=== PATIENT | female | born 1960 | race Caucasian/White ===

== ENCOUNTER → 2018-03-14 | Outpatient (CLI) | payer SELFPAY ==
--- NOTE | 2018-03-14 10:27 | RADIOLOGY IMAGING REPORT ---
FACILITY: [facility] [place] PATIENT NAME: Radha Coto : 1960 MR: [id number] V: [id number] EXAM DATE: ORDERING PHYSICIAN: LEXI GOOD TECHNOLOGIST: Location: [facility] Patient: Radha Coto : 1960 Visit/Account:[id number] Date of Sevice: 03/14/2018 L SPINE W/O CONTRAST EXAMINATION: Lumbar spine MRI without IV contrast HISTORY: Low back pain. COMPARISON: None. TECHNIQUE: Multi-planar, multi-sequence lumbar spine MRI was performed without intravenous contrast administration. FINDINGS: Alignment: Distortion of the normal lordotic curvature of the lumbar spine is related to a 9 mm anter ior spondylolisthesis at L5-S1 related to bilateral spondylolysis defects involving the pars interart icularis of L5. Vertebral marrow signal: There are Modic type endplate changes due to discogenic degenerative disease at L5-S1. Distal thoracic cord: Negative. Conus: negative, terminates at L1. Cauda equina: Negative. Paravertebral soft tissues: Negative. Visualized abdominal and pelvic structures: There is no retroperitoneal or pelvic lymphadenopathy. Lower thoracic spine: Normal. Sacrum: No abnormality noted. L1-2: Normal. L2-3: Minimal discogenic degenerative changes without central or foraminal stenosis. L3-4: Minimal discogenic degenerative changes without central or foraminal stenosis. L4-5: Discogenic degenerative changes manifest as loss of disc space height with desiccation of the i ntervertebral disc. Superimposed upon a very shallow annular disc bulge is a central disc protrusion that abuts the thecal sac but does not produce significant central stenosis. L5-S1: There is a 9 mm anterior spondylolisthesis related to bilateral spondylolysis defects involvin g the pars interarticularis of L5. There are resultant severe discogenic degenerative changes with a prominent annular disc bulge. There is no central stenosis, but there is very prominent foraminal s tenosis bilaterally due to the anterior spondylolisthesis and the annular disc bulge. There is likel y to be effective both the right and left exiting L5 nerve roots. IMPRESSION: 1. 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 There are prominent discogenic degenerative changes at this level a nd there is a very significant annular disc bulge. The annular disc bulge and the anterior spondylol isthesis combine to produce severe bilateral foraminal stenosis that affects the exiting right and le ft L5 nerve root. Correlation for symptoms is recommended. There is no central stenosis at this lev el. 2. Minimal discogenic degenerative changes at L4-5 with a very shallow central disc protrusion are o f doubtful clinical significance. Report Dictated By: Estiven Artis MD at 03/14/2018 9:58 AM Report E-Signed By: Estiven Artis MD at 03/14/2018 10:23 AM WSN:[email or web address]
== END ==
LOC: MRI 01:05
PROVIDERS: ATTEND Chiropractor
DX: M47.896 Other spondylosis, lumbar region (principal); M48.07 Spinal stenosis, lumbosacral region
CPT/HCPCS: 72148